=== PATIENT | female | born 1990 | race Two or more races ===

== ENCOUNTER → 2024-11-11 | Outpatient (CLI) | payer OTHER ==
[2024-11-11 18:51] LABS: BASO # 0.1 10^3/uL (0.0-0.2); BASO % 0.7 % (0.0-1.0); EOS # 0.2 10^3/uL (0.0-0.5); EOS % 1.7 % (0.0-3.0); HEMATOCRIT 40.3 % (36.0-47.0); HEMOGLOBIN 12.7 g/dl (12.0-15.5); LYMPH # 3.1 10^3/uL (1.5-5.0); LYMPH % 35.8 % (24.0-44.0); MEAN CORPUSCULAR HEMOGLOBIN 26.2 pg (27.0-33.0); MEAN CORPUSCULAR HGB CONC 31.5 g/dl (32.0-36.5); MEAN CORPUSCULAR VOLUME 83.1 fl (80.0-96.0); MONO # 0.5 10^3/uL (0.0-0.8); MONO % 5.6 % (2.0-8.0); NEUTROPHILS # 4.8 10^3/uL (1.5-8.5); NEUTROPHILS % 55.9 % (36.0-66.0); PLATELET COUNT, AUTOMATED 360 10^3/uL (150-450); RED BLOOD COUNT 4.85 10^6/uL (4.00-5.40); WHITE BLOOD COUNT 8.6 10^3/uL (4.0-10.0)
[2024-11-11 18:58] LABS: FREE T4 1.09 NG/DL (0.89-1.76)
[2024-11-11 18:59] LABS: FERRITIN 6.2 NG/ML (7.3-270.7); THYROID STIMULATING HORMONE 3.769 uIU/ML (0.55-4.78)
[2024-11-11 19:00] LABS: PERCENT SATURATION 10.8 % (13.2-45.0); PROGESTERONE 2.8 NG/ML
[2024-11-11 19:02] LABS: PROLACTIN 6.12 NG/ML
[2024-11-11 19:32] LABS: HEMOGLOBIN A1c 5.2 % (4.0-6.0)
[2024-11-16 13:57] LABS: HPV APTIMA Not Detected (Not Detected)
[2024-11-21 17:47] LABS: TESTOSTERONE FREE (DIRECT) 7.4 pg/mL (0.1-6.4)
== END ==
LOC: M PLALAB 15:09
PROVIDERS: ATTEND Nurse Practitioner Family
DX: Z12.4 Encounter for screening for malignant neoplasm of cervix (principal); L68.0 Hirsutism; N92.1 Excessive and frequent menstruation with irregular cycle; Z77.9 Other contact with and (suspected) exposures hazardous to health

== ENCOUNTER → 2024-12-15 | Outpatient (CLI) | payer OTHER | LOC: M WHC 13:41 | PROVIDERS: ATTEND Nurse Practitioner Family | DX: N92.1 Excessive and frequent menstruation with irregular cycle (principal); N88.8 Other specified noninflammatory disorders of cervix uteri; G93.89 Other specified disorders of brain; N83.11 Corpus luteum cyst of right ovary ==

== ENCOUNTER → 2025-03-02 | Outpatient (REF) | payer MEDICAID, OTHER | LOC: M PLALAB 15:59 | PROVIDERS: ATTEND Obstetrics & Gynecology | DX: Z53.9 Procedure and treatment not carried out, unspecified reason (principal) ==

== ENCOUNTER 2025-06-10 07:54 | Day surgery (SDC) | payer OTHER ==
[~2025-06-10] VITALS: Ht 165.1 cm; Wt 152.0 kg
[~2025-06-10 07:54] MED LIST: ASCO500C3 PO; DOXY100C3 PO; FAMO1TAB11 PO; FERR32TA PO; HYDR-643 PO; KETOROLAC 30 MG/ML 1 ML VIAL As Ordered ONE; LIDOCAINE 2% 100 MG/5 ML SDV (FOR ANES.) As Ordered ONE; LISI5TAB11 PO; METO1TAB32 PO; OMEP40CA5 PO; ONDANSETRON 4MG 2ML VIAL As Ordered ONE; SIME1CAP4 PO; SPIR-10 PO; dexAMETHasone 4 MG/ML 1 ML VIAL As Ordered ONE
[2025-06-10] MEDS ORDERED: MIDAZOLAM INJ 2 MG/2 ML VIAL As Ordered ONE (08:43)
[2025-06-10 09:26] LABS: CALCIUM LEVEL 8.8 MG/DL (8.5-10.1); CARBON DIOXIDE LEVEL 29 MMOL/L (20-31); CHLORIDE LEVEL 104 MMOL/L (98-107); CREATININE FOR GFR 0.77 MG/DL (0.55-1.30); GLOMERULAR FILTRATION RATE > 90.0 (>60); POTASSIUM SERUM 4.8 MMOL/L (3.5-5.1); SODIUM LEVEL 142 MMOL/L (136-145)
[2025-06-10] MEDS ORDERED: ACETAMINOPHEN 1000MG/100ML IV BAG As Ordered ONE (10:11)
[2025-06-10] MEDS: LIDOCAINE 1% MDV 20 ML VIAL As Ordered ONE (10:24)
[2025-06-10] MEDS ORDERED: ONDANSETRON 4MG 2ML VIAL IV PRN (10:50)
[2025-06-10 12:35] VITALS: BP 128/77; TEMP 97.3; O2SAT 99
== END 2025-06-10 12:46 | disposition home or self-care (01) ==
LOC: M SDC 07:54
PROVIDERS: ATTEND Obstetrics & Gynecology
DX: N84.0 Polyp of corpus uteri (principal); Z30.430 Encounter for insertion of intrauterine contraceptive device; N93.9 Abnormal uterine and vaginal bleeding, unspecified; E28.2 Polycystic ovarian syndrome; N92.6 Irregular menstruation, unspecified; E66.01 Morbid (severe) obesity due to excess calories; Z79.899 Other long term (current) drug therapy; I10 Essential (primary) hypertension; K21.9 Gastro-esophageal reflux disease without esophagitis; Z87.19 Personal history of other diseases of the digestive system; Z90.89 Acquired absence of other organs; Z68.43 Body mass index [BMI] 50.0-59.9, adult
CPT/HCPCS: 36415; 58301; 58558; 80048; 81025; 85014; 85018; 86850; 86900; 86901; 88305; J0131; J1100; J1885; J2250; J2405; J3010; J7298